=== PATIENT | female | born 1970 | race Caucasian/White ===

== ENCOUNTER 2018-01-04 12:04 | Inpatient (IN) | payer OTHER ==
[~2018-01-04] VITALS: Ht 170.2 cm; Wt 122.9 kg
--- NOTE | ~2018-01-04 | PROC ---
[address] [address] PROCEDURE REPORT Name: PARTH MANLEY Room: [address] IN ..#: [id number] Admission: 01/05/18 Attend Phys: Alexandra Hidalgo Discharge: Date of : 68 Report #: [id number] THIS REPORT FOR: //name// For GI report, please see Provation report in Perceptive 7 content. By: 1011Medical Records Staff [facility] /MOSES
[~2018-01-04 12:04] MED LIST: ASPIR 8181 MG PO; ASPIRIN EC325 M1 PO; AZITHROMYCIN 2250 MG PO; CARISOPRODOL 3350 MG PO; CHERACOL COUGH120 ML PO; FLEXERIL PO; HYDROCHLOROTHIA25 M1 PO; HYDROCHLOROTHIA25 M2 PO; IBUPROFEN 800800 M1 PO; IRON325 PO; LASIX 20 MG TAB20 MG PO; LEVAQUIN 500 M500 MG PO; METAXALONE800 MG; METFORMIN HCL500 MG PO; METHOCARBAMOL750 MG PO; MUCINEX600 MG PO; NIFEDIPINE ER30 M1; NOHOMEMEDICATIONS; NORCO 5-325 TA1 EAC1 PO; NORCO 5-325 TA1 EACH; NORCO 5-325 TA1 EACH PO; NORFLEX100 MG PO; OMEPRAZOLE20 M2 PO; OSELB75; OXYCODONE HCL20 M1; PAROXETINE HCL30 MG PO; PENICILLIN V P500 MG PO; PERCOCET 10-321 EACH PO; PERCOCET 7.5-51 EACH PO; PHENERGAN 25 MG25 MG PO; PREDNISONE 20 M20 MG PO; REQUIP5 MG PO; ROPINIROLE HCL2 M1 PO; TRAZODONE 150150 M1 PO; TYLENOL325 MG PO; ULTRACET TABLE1 EACH PO; ULTRAM 50MG TAB50 MG PO; ZOCOR 10 MG TAB10 M1 PO; [UNRECOGNIZED DRUG - OTHER] IV
[2018-01-04 12:22] VITALS: BP 94/38
[2018-01-04] MEDS ORDERED: NOHOMEMEDICATIONS (12:26)
[2018-01-04 13:14] LABS: ABSOLUTE BASOPHILS 0.1 thou/uL (0.0-0.2); ABSOLUTE EOSINOPHILS 0.1 thou/uL (0.0-0.7); ABSOLUTE LYMPHOCYTES 1.2 thou/uL (0.8-5.3); ABSOLUTE MONOCYTES 0.5 thou/uL (0.0-1.2); ABSOLUTE NEUTROPHILS 4.6 thou/uL (1.6-8.1); BASOPHILS 0.9 %; EOSINOPHILS 1.1 %; HEMATOCRIT 22.9 % (37.0-47.0); LYMPHOCYTES 18.9 %; MCH 17.3 pg (26.0-34.0); MCV 59.7 fL (80.0-100.0); MONOCYTES 8.1 %; MPV 8.6 fl. (7.2-11.1); NUCLEATED RBCS 0 /100WBC; PLATELET COUNT* 312 thou/uL (150-400); RBC 3.83 mil/uL (4.20-5.00); RDW-CV 19.6 % (10.5-14.5); WBC 6.5 thou/uL (4.0-11.0)
[2018-01-04 13:15] LABS: HEMOGLOBIN 6.6 gm/dL (12.0-15.0)
[2018-01-04 13:18] LABS: CALCIUM 8.3 mg/dL (8.5-10.1); CREATININE 0.5 mg/dL (0.6-1.3); POTASSIUM 4.3 mmol/L (3.5-5.1)
[2018-01-04 13:22] LABS: TOTAL BILIRUBIN 0.3 mg/dL (<0.1-1.0); TOTAL PROTEIN 6.9 g/dL (6.4-8.2)
[2018-01-04 13:32] LABS: ANISOCYTOSIS 1+; HYPOCHROMASIA 2+; MICROCYTES 3+; OVALOCYTES 2+
--- NOTE | 2018-01-04 15:17 | NUR ---
PT BLOOD STARTED AT 1315. CONSENT SIGNED BY PT AND RN. BLOOD VERIFIED BY 2 RN'S.
--- NOTE | 2018-01-04 15:20 | EKG ---
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1970 Requested By: Razia Mendiola Order Number: [id number] MD: Gaurav Yin Measurements Intervals [place] Rate: 58 P: -63 FL: 93 QRS: 47 QRSD: 95 T: 16 QT: 368 QTc: 362 Interpretive Statements Sinus or ectopic atrial rhythm Multiple ventricular premature complexes Short FL interval Nonspecific T abnormalities, anterior leads Compared to ECG 01/05/2016 07:45:05 Ectopic atrial rhythm now present Ventricular premature complex(es) now present Short FL interval now present T-wave abnormality now present Electronically Signed On 01-04-2018 15:20:01 CDT by Gaurav Yin [email or web address] <ELECTRONICALLY SIGNED> By: Gaurav Yin MD, FAC 01/04/18 1520 1220 1220 Gaurav Yin MD, FAC /EPI
[2018-01-04 16:58] VITALS: BP 119/52
[2018-01-04 17:27] VITALS: BP 121/46
--- NOTE | 2018-01-04 18:02 | NUR ---
PATIENT CAME TO THE FLOOR FROM THE ER VIA CART IN STABLE CONDITION. BLOOD INFUSING ON ARRIVAL. PATIENT HAS NO COMPLAINTS OF PAIN AT THIS TIME. ASSESSMENT DONE AND ROOM ORIENTATION DONE. QUESTIONS ANSWERED FOR PATIENT AND FAMILY. CALL LIGHT IS IN REACH, WILL CONTINUE TO MONITOR.
[2018-01-04 18:43] LABS: URINE BILIRUBIN NEGATIVE (Negative); URINE BLOOD NEGATIVE (Negative); URINE CLARITY CLEAR; URINE COLOR YELLOW; URINE GLUCOSE-RANDOM NEGATIVE (Negative); URINE KETONES NEGATIVE (Negative); URINE LEUKOCYTES-REFLEX NEGATIVE (Negative); URINE NITRITE-REFLEX NEGATIVE (Negative); URINE PROTEIN NEGATIVE (Negative); URINE UROBILINOGEN 0.2 E.U./dl (0.2-1.0)
[2018-01-04 21:10] VITALS: BP 103/57; BP 111/68; BP 115/37; BP 120/56; BP 120/68; BP 123/58
[2018-01-04 23:30] VITALS: BP 120/68
[2018-01-05 04:39] LABS: HEMATOCRIT 25.4 % (37.0-47.0); HEMOGLOBIN 7.6 gm/dL (12.0-15.0)
--- NOTE | 2018-01-05 06:46 | NUR ---
ASSUMED CARE OF PATIENT ABOUT 0300. AGREE WITH SHIFT ASSESSMENT. PATIENT RECEIVED 2ND UNIT OF BLOOD WITH NO APPARENT ADVERSE REACTIONS. PATIENT IS FEELING LESS WEAK AND IS ABLE TO WALK TO THE BATHROOM BY HERSELF. IV IS SALINE LOCKED. WILL CONTINUE TO MONITOR.
[2018-01-05 08:00] VITALS: BP 114/61
[2018-01-05 11:15] LABS: % SATURATION 5 % (20-39); IRON 18 ug/dL (50-175)
[2018-01-05 11:22] VITALS: BP 114/61; BP 120/74
--- NOTE | 2018-01-05 15:22 | NUR ---
CM ATTEMPTED TO SEE PT. SHE WAS OFF THE FLOOR FOR A PROCEDURE. WILL SEE IN AM.
--- NOTE | 2018-01-05 17:21 | NUR ---
PATIENT DOWN FOR EGD THIS AFTERNOON. PROTONIX ORDERED BID AND MAY RESUME DIET. PATIENT STATES SHE STILL FEELS FATIGUED. IV REMAINS SL. UP WITH ASSISTANCE.
[2018-01-05 21:00] VITALS: BP 136/73
[2018-01-06 07:55] VITALS: BP 123/65
[2018-01-06] MEDS ORDERED: PROTONIX40 M1 PO (10:44)
[2018-01-06 11:27] VITALS: BP 123/65
[2018-01-06] MEDS ORDERED: PRENATAL PLUS1 EAC5 PO (11:34)
--- NOTE | 2018-01-06 13:05 | NUR ---
PATIENT DISCHARGED TO HOME. DISCHARGE PAPERS REVIEWED AND SIGNED. PRESCRIPTION AND INFORMATION SHEETS GIVEN. IV REMOVED. PATIENT SCHEDULED FOR HYSTEROSCOPY IN AM OUTPATIENT. PATIENT DENIES ANY FURTHER NEEDS AT THIS TIME. PATIENT TAKEN BY WHEELCHAIR TO EXIT. LEFT WITH SPOUSE.
[2018-01-07] MEDS ORDERED: HYDROCODONE-AP1 EAC6 PO (12:02)
--- NOTE | 2018-01-09 08:55 | CON ---
[address] [address] CONSULTATION Name: PARTH MANLEY Room: [address] IN .#: [id number] Admission: 01/05/18 Attend Phys: Alexandra Hidalgo Discharge: 01/06/18 Date of : 68 Report #: [id number] THIS REPORT FOR: //name// CC: [facility] physician/PCP Tyrell Goins DICTATED BY: Susie Escobedo [facility] DATE OF SERVICE: 01/05/2018 Please note at the time of this dictation, the patient was seen and physically examined by myself. REASON FOR CONSULTATION: Acute anemia. HISTORY OF PRESENT ILLNESS: This is a 47-year-old female who presented to the Emergency Room with complaints of dizziness with an abrupt onset on the day that morning of admission. She states she has been felt very dizzy and lightheaded like she was going to pass out. She has noticed, though, prior the week preceding that she has had a great deal of fatigue, which has worsened. She states she has never been known to have a low hemoglobin and states that she had been told that she was low on iron in the past. She has been having ongoing nausea, which she states has been chronic for the last several months with also worsening of her GERD, which is occurring daily now and is not occurring at night. Her weight has been stable at this time and not taking anything for her acid reflux. Prior to her gastric sleeve done in 2015, she states she had severe acid reflux, particularly at night, but that is no longer the case and she has lost 200 pounds since that time. The patient did undergo an EGD and colonoscopy back in 2015 and was noted to have gastritis and colon showed some small internal hemorrhoids, otherwise was negative and we have not seen her since that time. Heavy menses lasting a week, may go through 4-5 large pads daily and her menses is about every 2 weeks and has been like that for the last several months. ALLERGIES: No known drug allergies. MEDICATIONS FROM HOME: The patient states she will take 2-3 ibuprofen, maybe a couple times a week for just some general arthralgias that she will have. PAST MEDICAL HISTORY: Questionable small heart attack in 1998 in [place]. She has had sleep apnea in the past. 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 [address] CONSULTATION Name: VINEETPARTH Ric Room: [address]#: [id number] Admission: 01/05/18 Attend Phys: Alexandra Hidalgo Discharge: 01/06/18 Date of : 68 Report #: [id number] FAMILY HISTORY: Negative for any GI or female cancers. SOCIAL HISTORY: Denies any alcohol, tobacco or illegal drug use at this time. REVIEW OF SYSTEMS: Twelve-point review of systems is essentially negative except what is mentioned in the HPI. PHYSICAL EXAMINATION: VITAL SIGNS: Temperature 37.2, pulse 73, respirations 18, blood pressure 120/68. HEART: Regular rate and rhythm. LUNGS: Clear. ABDOMEN: Soft, positive bowel sounds in all 4 quadrants with no masses or tenderness noted. LABORATORY DATA: Hemoglobin on admission was 6.5. Please note that back in 2016, hemoglobin was noted to be 11.5. She received 2 units of blood and she is now 7.6, hematocrit 25.4, white count is 6.5, platelets 312. Sodium 137, potassium 4.3, chloride 104, CO2 of 28, BUN is 10, creatinine 0.5. Her fibrinogen was 376. GFR is 132 and glucose is 91. Abdominal x-ray showed some retained stool. ASSESSMENT: 1. Nausea. 2. Gastroesophageal reflux disease, worsening. 3. Acute anemia. 4. Menorrhagia. PLAN: 1. EGD today with Dr. Whitehead. 2. Labs, ferritin, iron studies and B12. 3. DIRECTOR OF REVENUE to see. 4. Further recommendations to be made after the procedure has been performed. Thank you for allowing us to participate in this patient's care. Please do not hesitate to call with any questions in regard to this consult. <ELECTRONICALLY SIGNED> By: Mainor Whitehead MD 01/09/18 0855 1041 06Mainor Whitehead MD /nt
--- NOTE | 2018-01-09 08:55 | CON ---
[address] [address] CONSULTATION Name: PARTH MANLEY Room: [address] IN M.R.#: [id number] Admission: 01/05/18 Attend Phys: Alexandra Hidalgo Discharge: 01/06/18 Date of : 68 Report #: [id number] THIS REPORT FOR: //name// CC: [facility] physician/PCP Ismael Goins DATE OF SERVICE: 01/05/2018 ADDENDUM CONSULT NUMBER: [id number] I have personally seen and examined the patient and reviewed labs and imaging. The patient who presented with severe anemia and history of menorrhagia who also has had history of gastric sleeve surgery in the past, which resulted in losing 240 pounds. Her last upper and lower endoscopy was back in [address] Stuart, my partner. She also occasionally may have nausea and vomiting, but she had contributed it to eating the wrong stuff. We will go ahead and perform an upper endoscopy to further evaluate her nausea, vomiting and acute anemia. We will make further recommendation once the endoscopic evaluation is complete. <ELECTRONICALLY SIGNED> By: Mainor Whitehead MD 01/09/18 0855 1510 [id number] Whitehead MD /nt
--- NOTE | 2018-04-06 14:10 | PATH ---
[address] [address] PATHOLOGY RPT PROCEDURE Name: SANA MANLEY Room: [address] IN .R.#: [id number] Admission: 01/05/18 Date of : 68 Discharge: 01/06/18 Report #: [id number] Path Case #: [id number] [facility] Accession Number: [id number] . 01 Material submitted: . ANTRAL EROSION BIOPSY . 01 Clinical history: . Hiatal hernia, grade B esophagitis . 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 (ABEL:db; 01/06/2018) LBQ/01/06/2018 . 02 Comment: Special stain: H. pylori immuno . 02 Electronically signed: . Milo Caraballo MD, Pathologist NPI- [id number] . 01 Gross description: . Received in formalin labeled "Patrick, Sana, antral erosion biopsy," is a single segment of purvis soft tissue measuring 0.4 cm in maximum dimension. The specimen is submitted entirely in cassette A1. (TSD; 01/05/2018) TOB/TOB . 02 CPT . 957337, [id number] Performed at: [address], [place], [place] [id number] MD Toño Bravo MD Phone: [phone] Performed at: 02 [facility] [address] [address], [place], [place] [id number] MD Milo Caraballo MD Phone: [phone]
== END 2018-01-06 13:05 | disposition home or self-care (01) | DRG 378 ==
LOC: M.ERS 12:04 → M.TBA-ER 15:07 → M.3W 15:07
PROVIDERS: Nurse Practitioner Adult Health; Personal Emergency Response Attendant; ADMIT Internal Medicine
PROC: 30233N1 Transfusion of Nonautologous Red Blood Cells into Peripheral Vein, Percutaneous Approach (ICD-10-PCS; principal; 2018-01-04)
PROC: 0DB68ZX Excision of Stomach, Via Natural or Artificial Opening Endoscopic, Diagnostic (ICD-10-PCS; 2018-01-05)
DX: K92.2 Gastrointestinal hemorrhage, unspecified (principal); Z68.41 Body mass index [BMI] 40.0-44.9, adult; E30.1 Precocious puberty; D50.9 Iron deficiency anemia, unspecified; K21.0 Gastro-esophageal reflux disease with esophagitis; E66.9 Obesity, unspecified; K31.9 Disease of stomach and duodenum, unspecified; G89.29 Other chronic pain; M54.2 Cervicalgia; I95.9 Hypotension, unspecified; N92.0 Excessive and frequent menstruation with regular cycle; K44.9 Diaphragmatic hernia without obstruction or gangrene; R12 Heartburn; Z79.899 Other long term (current) drug therapy; Z98.84 Bariatric surgery status

== ENCOUNTER → 2018-01-07 | Day surgery (SDC) | payer OTHER ==
[~2018-01-07] MED LIST changes: +HYDROCODONE-AP1 EAC6 PO; +PRENATAL PLUS1 EAC5 PO; +PROTONIX40 M1 PO
--- NOTE | ~2018-01-07 | OP ---
[address] [address] OPERATIVE REPORT Name: PARTH MANLEY Room: [facility]#: [id number] Admission: 01/07/18 Attend Phys: Zac Cameron MD Discharge: Date of : 68 Report #: [id number] THIS REPORT FOR: //name// Please see the post operative note for details of the procedure. By: 1136Medical Records Staff [facility] /MOSES
--- NOTE | 2018-01-20 08:27 | H ---
[place] [address] HISTORY AND PHYSICAL Name: PARTH MANLEY Room: [facility]#: [id number] Admission: 01/07/18 Attend Phys: Zac Cameron MD Discharge: Date of : 68 Report #: [id number] THIS REPORT FOR: //name// CC: [facility] physician/PCP Zac Cameron DATE OF SERVICE: 01/07/2018 HISTORY OF PRESENT ILLNESS: The patient is a 47-year-old 2, para 2 white female who originally presented to the Emergency Room on 01/04/2018 with symptoms of dizziness and weakness. She was found to be profoundly anemic and was admitted to the hospital for therapy. During that hospitalization, she underwent an EGD that showed some gastric and esophageal irritation. A pelvic ultrasound was ordered and an essentially normal appearing upper uterus was noted. There was difficulty visualizing the lower uterine segment or adnexa. The patient has history of having had a gastric sleeve surgery in the past. She denies having had low hemoglobin in the past. She did note some changes in her menses and reported having very heavy menstrual cycles in the past, although in the last 2 years since her gastric sleeve she has not had heavy flow. She has had some bleeding in between her periods, however, and she is being admitted for hysteroscopy and D and C. PAST MEDICAL AND SURGICAL HISTORY: Show that she had "mild heart attack" in 1998 in [place], had a tendon release on her left heel at [facility] in 2005. She has sleep apnea. She has acid reflux. She had a tubal ligation in the past and nasal surgery x 2. She has a chronic neck pain secondary to a bulging disk and had a tumor removed from her ankle in 1990. CURRENT MEDICATIONS: At home, were hydrocodone/acetaminophen 5/325 p.r.n. pain and the patient is on iron supplementation. ALLERGIES: She denies allergies to food or medications. SOCIAL HISTORY: She is not a smoker, does not consume alcohol and does not use drugs. PHYSICAL EXAMINATION: GENERAL: She is a well-nourished, well-developed white female, in no acute distress. HEENT: Normal. CHEST: Clear to auscultation and percussion. HEART: Normal sinus rhythm without murmurs. ABDOMEN: Soft, obese. Liver, kidneys and spleen are not palpable. PELVIC: BUS examination is normal. Vagina is without obvious lesion. The cervix is difficult to visualize (the patient states she has always had a high cervix). No palpable abnormalities are noted. No [place] [address] HISTORY AND PHYSICAL Name: VINEETPARTH Room: [facility]#: [id number] Admission: 01/07/18 Attend Phys: Zac Cameron MD Discharge: Date of : 68 Report #: [id number] EXTREMITIES: Shows no varicosities or edema. IMPRESSION: 1. Anemia with hypotension, hypotension corrected. 2. History of abnormal menses with menorrhagia in the past and current metrorrhagia. 3. History of abnormal Pap. PLAN: I discussed performing a hysteroscopy with D and C while as an inpatient. The patient has been dismissed from [facility] and will be coming in as an outpatient to have this procedure performed. Risks of the operation have been discussed in detail with the patient. She has received a printout from [employer] about possible causes of abnormal bleeding and a hysteroscopy fact sheet, FAQ sheet from [facility]. She has had the opportunity to ask questions and they have been answered. <ELECTRONICALLY SIGNED> By: Zac Cameron MD 01/20/18 0827 1600 [id number] Cameron MD /nt
--- NOTE | 2018-04-06 13:08 | PATH ---
[address] [address] PATHOLOGY RPT PROCEDURE Name: SANA MANLEY Room: [facility]#: [id number] Admission: 01/07/18 Date of : 68 Discharge: Report #: [id number] Path Case #: [id number] [facility] Accession Number: [id number] . 01 Material submitted: . PART A: ENDOCERVICAL CURETTINGS PART B: ENDOMETRIAL CURETTINGS . 01 Clinical history: . Anemia with hypotension . 02 Diagnosis: A. Endocervical curettings: - Abundant benign squamous and endocervical tissues with moderate acute and chronic inflammation and associated atypical squamous metaplasia, negative for high grade dysplasia. See comment. . B. Endometrial curettings: - Focally disordered proliferative pattern endometrium, negative for hyperplasia and atypia. - Benign endocervical tissue with moderate chronic inflammation, negative for dysplasia. (ABEL:vini; 01/10/2018) QMS/01/10/2018 . 02 Comment: The accompanying cervical specimen ([id number]) is negative for an intraepithelial lesion and malignancy with negative HPV Aptima. . . . 02 Electronically signed: . Milo Caraballo MD, Pathologist NPI- [id number] . 01 Gross description: . A. The specimen is received in formalin, labeled "Sana Manley and endocervical curettings", is a 1.4 x 1.0 x 0.6 cm aggregate of purvis hemorrhagic mucoid material, entirely submitted in A1. . B. The specimen is received in formalin, labeled "Patrick, Sana and endometrial curettings", are multiple purvis hemorrhagic soft tissues measuring 3.0 x 2.2 x 0.7 cm in aggregate, entirely submitted in B1-B2. (SWS; 01/07/2018) SHS/ . 02 Pathologist provided ICD-10: N72, N85.[address] [place] [address] PATHOLOGY RPT PROCEDURE Name: SANA MANLEY Room: [facility]#: [id number] Admission: 01/07/18 Date of : 68 Discharge: Report #: [id number] Path Case #: [id number] . 02 [facility] . [id number], [id number] Performed at: [address], [place], [place] [id number] MD Toño Bravo MD Phone: [phone] Performed at: 02 [facility] [address], [place], [place] [id number] MD Milo Caraballo MD Phone: [phone]
--- NOTE | 2018-04-06 15:08 | PATH ---
[address] [address] PATHOLOGY RPT PROCEDURE Name: SANA MANLEY [id number] Admission: 01/07/18 Date of : 68 Discharge: Report #: [id number] Path Case #: [id number] [facility] Accession Number: [id number] . 01 Material submitted: . CERVIX AND ENDOCERVIX BRUSH/SPATULA . 02 Diagnosis: Cervix and endocervix, brush/spatula collection: - Scant strips of benign squamous epithelium and abundant benign endocervical epithelium with scattered endocervical atypia and background of heavy acute inflammation, negative for high grade dysplasia. See comment. LBQ/01/14/2018 . 02 Comment: The endocervical atypia is within the spectrum of inflammatory atypia although low grade endocervical dysplasia cannot be excluded. Recent gynecologic specimens show the following results: ([id number]) negative for intraepithelial lesion and malignancy; HPV Aptima negative (specimen adequacy - satisfactory for evaluation but no endocervical component identified). . ([id number]) endocervical curettings with abundant benign squamous and endocervical tissues showing moderate acute and chronic inflammation, associated atypical squamous metaplasia negative for high grade dysplasia and focally disordered proliferative pattern endometrium negative for hyperplasia and atypia. (ABEL:db; 01/14/2018) . 02 Electronically signed: . Milo Caraballo MD, Pathologist NPI- [id number] . 01 Gross description: . Received in formalin labeled "Sana Manley, cervix and endocervical Pap smear, histology" and consists of a 0.4 x 0.3 x 0.2 cm aggregate of scant purvis tissue and mucoid material which is entirely submitted as A1. (EDNA; 01/12/2018) JBR/JBR . 02 Pathologist provided ICD-10: N72 . 02 CPT . [id number] Performed at: 01 [place] [address] PATHOLOGY RPT PROCEDURE Name: SANA MANLEY Room: [facility].#: [id number] Admission: 01/07/18 Date of : 68 Discharge: Report #: [id number] Path Case #: [id number] [address] [facility] [address], [place], [place] [id number] MD Toño Bravo MD Phone: [phone] Performed at: 02 [facility] [address], [place], [place] [id number] MD Milo Caraballo MD Phone: [phone]
== END | disposition home or self-care (01) ==
LOC: M.SUR 07:49
DX: N72 Inflammatory disease of cervix uteri (principal); N92.1 Excessive and frequent menstruation with irregular cycle; N93.8 Other specified abnormal uterine and vaginal bleeding; D64.9 Anemia, unspecified; I25.2 Old myocardial infarction; G47.33 Obstructive sleep apnea (adult) (pediatric); K21.9 Gastro-esophageal reflux disease without esophagitis; Z79.891 Long term (current) use of opiate analgesic; Z98.890 Other specified postprocedural states; Z98.51 Tubal ligation status; Z87.42 Personal history of other diseases of the female genital tract; Z88.8 Allergy status to other drugs, medicaments and biological substances; Z79.899 Other long term (current) drug therapy

== ENCOUNTER 2020-12-12 13:26 | Inpatient (IN) | payer OTHER ==
[~2020-12-12] VITALS: Ht 170.2 cm; Wt 123.9 kg
[2020-12-12 13:32] VITALS: BP 136/47
[2020-12-12 13:50] LABS: ABSOLUTE EOSINOPHILS 0.1 thou/uL (0.0-0.7); ABSOLUTE LYMPHOCYTES 1.5 thou/uL (0.8-5.3); ABSOLUTE MONOCYTES 0.5 thou/uL (0.0-1.2); ABSOLUTE NEUTROPHILS 3.4 thou/uL (1.6-8.1); BASOPHILS 0.9 %; EOSINOPHILS 1.7 %; HEMOGLOBIN 12.7 gm/dL (12.0-15.0); LYMPHOCYTES 26.7 %; MCH 28.9 pg (26.0-34.0); MCHC 32.5 g/dL (28.0-37.0); MONOCYTES 9.2 %; MPV 8.7 fl. (7.2-11.1); NUCLEATED RBCS 0 /100WBC; PLATELET COUNT* 220 thou/uL (150-400); POLYS 61.5 %; RBC 4.38 mil/uL (4.20-5.00); RDW-CV 16.6 % (10.5-14.5); WBC 5.5 thou/uL (4.0-11.0)
[2020-12-12 14:01] LABS: CALCIUM 8.4 mg/dL (8.5-10.1); CREATININE 0.7 mg/dL (0.6-1.3); POTASSIUM 3.7 mmol/L (3.5-5.1)
[2020-12-12 14:12] LABS: ALBUMIN 3.5 g/dL (3.4-5.0); MAGNESIUM 2.1 mg/dL (1.8-2.4); TOTAL BILIRUBIN 0.2 mg/dL (<0.1-1.0); TOTAL PROTEIN 7.4 g/dL (6.4-8.2)
--- NOTE | 2020-12-12 16:02 | EKG ---
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1970 Requested By: Pool Freitas Order Number: [id number] MD: Bryce Grijalva Measurements Intervals [place] Rate: 46 P: 33 IN: 155 QRS: 72 QRSD: 127 T: 213 QT: 412 QTc: 361 Interpretive Statements Sinus bradycardia Borderline repolarization abnormality Compared to ECG 01/04/2018 12:20:00 Ectopic atrial rhythm no longer present Ventricular premature complex(es) no longer present Short IN interval no longer present T-wave abnormality no longer present Electronically Signed On 12-12-2020 16:02:21 CDT by Bryce Grijalva [email or web address] <ELECTRONICALLY SIGNED> By: Bryce Grijalva MD, FAC 12/12/20 1602 1330 1330 Bryce Grijalva MD, [facility] /EPI
[2020-12-12 17:05] VITALS: BP 137/56
[2020-12-12] MEDS ORDERED: FAMOTIDINE 40 M40 M1 PO (17:26)
[2020-12-12] MEDS ORDERED: PROTONIX40 M2 PO (17:27)
[2020-12-12 17:33] VITALS: BP 139/54
[2020-12-12 20:00] VITALS: BP 139/44; BP 141/87
[2020-12-12 23:44] VITALS: BP 90/31
[2020-12-13 03:27] VITALS: BP 92/34
[2020-12-13 03:58] LABS: HEMATOCRIT 37.4 % (37.0-47.0); MCH 28.7 pg (26.0-34.0); MCV 89.6 fL (80.0-100.0); MPV 8.9 fl. (7.2-11.1); RBC 4.17 mil/uL (4.20-5.00); RDW-CV 16.3 % (10.5-14.5); WBC 4.9 thou/uL (4.0-11.0)
[2020-12-13 04:11] LABS: CALCIUM 8.5 mg/dL (8.5-10.1); CREATININE 0.5 mg/dL (0.6-1.3); POTASSIUM 3.6 mmol/L (3.5-5.1)
[2020-12-13 08:00] VITALS: BP 132/68
--- NOTE | 2020-12-13 10:53 | EKG ---
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 : 1970 Requested By: Chari Dumont Order Number: [id number] Reading MD: Gaurav Yin Measurements Intervals [place] Rate: 46 P: 11 FL: 163 QRS: 75 QRSD: 101 T: 4 QT: 425 QTc: 372 Interpretive Statements Sinus bradycardia Low voltage, precordial leads Nonspecific T abnormalities, anterior leads Compared to ECG 12/12/2020 13:30:56 Low QRS voltage now present Electronically Signed On 12-13-2020 10:53:38 CDT by Gaurav Yin [email or web address] <ELECTRONICALLY SIGNED> By: Gaurav Yin MD, [facility] 12/13/20 1053 30 30 Gaurav Yin MD, [facility] /EPI
--- NOTE | 2020-12-13 11:52 | 2DMMODE ---
[place] [address] 2 D/M-MODE ECHOCARDIOGRAM Name: PARTH MANLEY Room: [address] IN [facility]#: [id number] Admission: 12/12/20 Attend Phys: Chari Dumont Discharge: Date of : 68 Date of Service: 12/13/20 1152 Report #: [id number] THIS REPORT FOR: cc: Pratima Carrizales Michelle RNP Blick, David R. MD [facility] ~ APPROVED REPORT Study performed: 12/13/2020 10:16:18 EXAM: Comprehensive 2D, Doppler, and color-flow Echocardiogram Patient Location: In-Patient Room #: [facility] Status: routine BSA: 2.32 HR: 43 bpm BP: 92/34 mmHg Rhythm: NSR Other Information Study Quality: Good Indications Bradycardia 2D Dimensions IVSd: 10.64 (7-11mm) LVOT Diam: 21.90 (18-24mm) LVDd: 57.88 mm PWd: 11.67 (7-11mm) Ascending Ao: 32.83 (22-36mm) LVDs: 34.48 (25-40mm) Aortic Root: 32.37 mm Volumes Left Atrial Volume (Systole) LA ESV Index: 28.50 mL/m2 Aortic Valve AoV Peak Rome.: 1.61 m/s AO Peak Gr.: 10.33 mmHg LVOT Max P.54 mmHg AO Mean Gr.: 5.23 mmHg LVOT Mean P.97 mmHg LVOT Max V: 1.07 m/s AO V2 VTI: 36.12 cm LVOT Mean V: 0.63 m/s SAHARA (VTI): 2.53 cm2 LVOT V1 VTI: 24.31 [place] [address] 2 D/M-MODE ECHOCARDIOGRAM Name: PARTH MANLEY Room: [address] IN [facility]#: [id number] Admission: 12/12/20 Attend Phys: Chari Dumont Discharge: Date of : 68 Date of Service: 12/13/20 1152 Report #: [id number] Mitral Valve E/A Ratio: 1.93 MV Decel. Time: 236.42 ms MV E Max Rome.: 0.87 m/s MV PHT: 68.56 ms MVA (PHT): 3.21 cm2 TDI E/Lateral E': 4.83 E/Medial E': 5.80 Medial E' Rome.: 0.15 m/s Lateral E' Rome.: 0.18 m/s Pulmonary Valve PV Peak Rome.: 0.86 m/s PV Peak Gr.: 2.93 mmHg Tricuspid Valve RAP Estimate: 5.00 mmHg TR Peak Gr.: 18.65 mmHg RVSP: 23.00 mmHg PA Pressure: 23.00 mmHg Left Ventricle The left ventricle is normal size. There is normal LV segmental wall motion. There is normal left ventricular wall thickness. Left ventricular systolic function is normal. The left ventricular ejection fraction is within the normal range. LVEF is 55-60%. The left ventricular diastolic function is normal. Right Ventricle The right ventricle is normal size. The right ventricular systolic function is normal. Atria The left atrium size is normal. The right atrium size is normal. Aortic Valve The aortic valve is normal in structure. Mild aortic regurgitation. There is no aortic valvular stenosis. Mitral Valve The mitral valve is normal in structure. Mild mitral regurgitation. No evidence of mitral valve stenosis. Tricuspid Valve The tricuspid valve is normal in structure. Mild tricuspid regurgitation. [place] [address] 2 D/M-MODE ECHOCARDIOGRAM Name: VINEETPARTH Room: [address] IN [facility]#: [id number] Admission: 12/12/20 Attend Phys: Chari Dumont Discharge: Date of : 68 Date of Service: 12/13/20 1152 Report #: [id number] Pulmonic Valve The pulmonary valve is normal in structure. Mild pulmonic regurgitation. Great Vessels The aortic root is normal in size. IVC is normal in size and collapses >50% with inspiration. Pericardium There is no pericardial effusion. <Conclusion> LVEF is 55-60%. Mild aortic regurgitation. Mild mitral regurgitation. <ELECTRONICALLY SIGNED> By: Gaurav Yin MD, [facility] 12/13/20 1152 1152 1152 Gaurav Yin MD, FACC /INF
[2020-12-13 12:00] VITALS: BP 113/59
[2020-12-13 20:00] VITALS: BP 141/87
[2020-12-14 00:13] VITALS: BP 117/77
[2020-12-14 04:14] VITALS: BP 132/87
[2020-12-14 04:38] LABS: HEMATOCRIT 40.4 % (37.0-47.0); HEMOGLOBIN 13.1 gm/dL (12.0-15.0); MCH 28.5 pg (26.0-34.0); MCHC 32.4 g/dL (28.0-37.0); MPV 9.1 fl. (7.2-11.1); RBC 4.59 mil/uL (4.20-5.00); RDW-CV 16.2 % (10.5-14.5); WBC 7.4 thou/uL (4.0-11.0)
[2020-12-14 04:49] LABS: CALCIUM 8.6 mg/dL (8.5-10.1); CREATININE 0.7 mg/dL (0.6-1.3); POTASSIUM 3.5 mmol/L (3.5-5.1)
[2020-12-14 08:30] VITALS: BP 100/68
[2020-12-14 11:48] VITALS: BP 100/68
[2020-12-14 12:00] VITALS: BP 142/85
[2020-12-14] MEDS ORDERED: NORCO5 PO (15:17)
--- NOTE | 2020-12-16 15:17 | EKG ---
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 : 1970 Requested By: Gaurav Yin Order Number: [id number] Levy MD: Gideon Bui Measurements Intervals [place] Rate: 77 P: SC: 177 QRS: 42 QRSD: 95 T: -16 QT: 381 QTc: 432 Interpretive Statements Atrial-paced complexes Low voltage, precordial leads Nonspecific T abnormalities, anterior leads Compared to ECG 12/12/2020 22:31:00 Sinus bradycardia no longer present T-wave abnormality still present Electronically Signed On 12-16-2020 15:17:00 CDT by Gideon Bui [email or web address] <ELECTRONICALLY SIGNED> By: Gideon Bui MD, [facility] 12/16/20 1517 2 2 Gideon Bui MD, [facility] /EPI
--- NOTE | 2020-12-17 16:28 | CARD ---
[address] [address] CARDIAC CATH REPORT Name: PARTH MANLEY Room: [address]#: [id number] Admission: 12/12/20 Attend Phys: Alexandra Mcnair Discharge: 12/14/20 Date of : [birth year] Report #: [id number] THIS REPORT FOR: cc: Pratima Carriazles Michelle RNP Blick, David R. MD [facility] ~ APPROVED REPORT Study performed: 12/13/2020 15:39:42 Patient Status: In-Patient Room #: Event Personnel: Gomez Bryant GLUE MAKER BONE Monitor, Vinh Osullivan RTR Scrub, Wojciech Amaro RN RN, Gaurav Yin General Manager, Nilesh Pathak GLUE MAKER BONE Monitor, Mesha Lamb Monitor Exam: Insertion of Dual Chamber Permanent Pacemaker and cardioversion Indications: Sick Sinus Syndrome/Tachy Jerrell Syndrome The patient is a 50 year-old female with a history of Dizziness and vertigo. Conscious Sedation Start time: 1622 End Time: 1827 Fentanyl 225 mcg Versed 22 mg Implanted Devices: permanent dual chamber MRI compatible Biotronic pacemaker generator and leads Procedure The patient underwent informed consent. We discussed the details of the procedure including the risks, which include, but not limited to bleeding, infection, vascular damage, cardiac perforation, and pneumothorax. She understood these risks and was willing to proceed. As such, she was brought to the EP/Cardiac Catheterization laboratory in a fasting and sedated state and prepped and draped in a sterile fashion, received IV antibiotics prior to initiation of the procedure and a venogram was performed showing patency of the left axillary vein. The patient underwent conscious sedation, with no related complications. The patient was brought to the EP/Cardiac Catheterization laboratory and the left chest and shoulder were prepped and draped in a sterile manner. During this case, Fluoroscopy and low [place] [address] CARDIAC CATH REPORT Name: PARTH MANLEY Room: [address]#: [id number] Admission: 12/12/20 Attend Phys: Alexandra Mcnair Discharge: 12/14/20 Date of : 68 Report #: [id number] imaging. IV conscious sedation was used throughout procedure with appropriate monitoring and was performed in the presence of a registered nurse who was an independent trained observer other than the physician performing the procedure. The left subclavian region was infiltrated with 2% Lidocaine subcutaneous anesthesia. A transverse incision was made in the left upper chest cavity. The subcutaneous pocket was formed via blunt dissection. Percutaneous venous access was achieved and an introducer sheath was inserted into the left Subclavian vein. Sheaths were positions using the modified Seldinger technique Through the introducer sheaths the atrial and ventricular lead wires were positioned in the right atrial appendage and right ventricular apex respectively. Utilizing fluoroscopic guidance, the atrial and ventricular lead wires were advanced over the wires and positioned in the right atria and right ventricle respectively. Capturing and sensing thresholds were verified. On insertion of the leads, the patient deveoped recurrent rapid atrial fibrillation. The patient was given IV Digoxin, 0.5 mg IV, and IV amiodarone 150 mg over 10 minutes. The patient required 4 cardioversions during pacemaker insertion up to 360 J. Electrode Parameters P Wave: greater than 2 mv R Wave: greater than 5 mv Atrial Threshold: less than 1 v@.4ms Ventricular Threshold: less than 1.0v@0.4 ms Atrial Resistance: normal Ventricular Resistance: normal Dual Chamber The atrial and ventricular leads were then secured using 0 silk sutures. The subcutaneous pocket was irrigated with ancef antibiotic solution.The atrial and ventricular leads were attached to the appropriate receptacles on the pulse generator and set screws firmly tightened to insure adequate contact and stability. The lead and pulse generator were placed into the subcutaneous pocket. Sharp and sponge counts were confirmed to be correct. At this time the pocket was closed subcutaneously with a , 0 Vicryl2.0 Vicryl, 4.0 Vicryl and the skin was closed with a DERMABOND. The operative site was dressed in sterile fashion with skin affix and the patient was transferred to the floor in stable [place]. [place] [address] CARDIAC CATH REPORT Name: PARTH MANLEY Room: [address] IN M..#: [id number] Admission: 12/12/20 Attend Phys: Alexandra Mcnair Discharge: 12/14/20 Date of : [birth year] Report #: [id number] The patient tolerated the procedure well and there were no complications associated with the procedure. Findings Specimens Removed: N/A Estimated Blood Loss: less [id number] Conclusion 1. successful placement of a dual chamber pacemaker 2. successful cardioversion of atrial fibrillation to sinus rhythm <ELECTRONICALLY SIGNED> By: Gaurav Yin MD, [facility] 12/17/20 1628 27 [id number] Yin MD, FAC /INF
--- NOTE | 2020-12-17 16:29 | CON ---
[address] [address] CONSULTATION Name: PARTH MANLEY Room: [address] IN ..#: [id number] Admission: 12/12/20 Attend Phys: Alexandra Mcnair Discharge: 12/14/20 Date of : [birth year] Report #: [id number] THIS REPORT FOR: cc: Pratima Carrizales Michelle RNP Blick, David R. MD [facility] ~ DOC #: [id number] Gaurav Yin MD [facility] DATE OF CONSULTATION: 12/13/2020 CARDIOLOGY CONSULTATION HISTORY OF PRESENT ILLNESS: The patient is a 50-year-old white female who I was asked to see in the hospital today after she complained of chest pain. The patient has an extensive and complicated past medical history. She is 5 feet 8 inches and previously weighed over 450 pounds. She apparently had an abnormal nuclear stress test back in 2011 and actually had a heart catheterization at [facility] at that time, that showed no significant coronary artery disease. Prior to undergoing bariatric surgery, she underwent a nuclear stress test in 2016 at [place] that showed no significant ischemia. She subsequently had her gastric sleeve surgery in 2016 in [place]. The patient stays very active at work. She was doing well until the past week, she has been having intermittent heaviness in her chest. It comes and goes. It is not related to exertion or meals. Occasionally, goes into her left arm. This is not related to coughing. She has had no bleeding in her stool. She denies any trauma to her chest. Yesterday, she felt a heaviness in her chest. She took her heart rate and it was under 50. She drove herself to the emergency room and was admitted for further evaluation and treatment. She does note occasional skipped beat of her heart, but has had no syncope. She has complained of fatigue and shortness of breath. She had no significant edema or syncope. PAST MEDICAL HISTORY: Otherwise, she had cervical cancer, treated for ablation in the past. She has had left heel tendon release. She has had a tubal ligation. No surgery, right ankle reconstructive surgery. Her last menstrual period was 2 weeks ago. She previously had a history of hyperlipidemia, but is no longer taking a statin drug. She had a previous history of glucose intolerance, but no longer taking metformin. No history of hypertension. CURRENT MEDICATIONS: Include only Pepcid and Protonix for reflux. She is no longer on Paxil. She used to take Lasix for edema. She has a history of anemia and receives iron infusions. ALLERGIES: She [place] [address] CONSULTATION Name: PARTH MANLEY Room: [address] IN M.R.#: [id number] Admission: 12/12/20 Attend Phys: Alexandra Mcnair Discharge: 12/14/20 Date of : [birth year] Report #: [id number] FAMILY HISTORY: Her sister had a stent. Another sister had atrial fibrillation. SOCIAL HISTORY: She is . She and her live in [place]. She works at [employer]. Quit smoking years ago. No alcohol abuse. REVIEW OF SYSTEMS: GENERAL: She is still overweight being 5 feet 8 inches, 270 pounds. HEENT: She was anicteric. Conjunctivae pink. Mucous membranes moist. NECK: Veins difficult to assess due to obesity. No carotid bruits. CHEST: Clear to auscultation. HEART: Regular rate and rhythm. ABDOMEN: Obese. EXTREMITIES: No pitting edema. Dorsalis pedis pulse, 1+ bilaterally. SKIN: Cool and dry. NEUROLOGIC: Nonfocal. LABORATORY DATA: ECG shows sinus bradycardia with nonspecific ST segment changes. Her workup in the emergency room yesterday, she had a portable chest x-ray that showed normal heart size, clear lung mcmullen. CT scan of the head showed no acute abnormality. Her lab work; sodium 140, potassium 3.6, creatinine 0.5. Her liver function studies were normal. Troponins were all less than 0.06. TSH 1.3, T4 1.0. Her white blood cell count 4.9, hemoglobin 12. Her COVID antigen stat test was negative. IMPRESSION AND RECOMMENDATIONS: 1. Chest pain. Atypical for angina. No acute myocardial infarction. Previous heart catheterization in 2011 showed no coronary artery disease. Nuclear stress test in 2016 was nonischemic. Suspect her chest pain is noncardiac. 2. Sinus bradycardia. If symptomatic, she would require pacemaker. 3. Obesity. Previous gastric sleeve surgery. 4. History of hyperlipidemia. The patient is no longer on a statin drug. 5. Previous history of glucose intolerance. The patient no longer on metformin. 6. History of sleep apnea. The patient no longer uses CPAP. 7. Chronic anemia. The patient received IV infusions of iron. Gaurav Yin MD [facility] [address] [address] CONSULTATION Name: PARTH MANLEY Room: [address] IN [place].#: [id number] Admission: 12/12/20 Attend Phys: Alexandra Mcnair Discharge: 12/14/20 Date of : 68 Report #: [id number] <ELECTRONICALLY SIGNED> By: Gaurav Yin MD, [facility] 12/17/20 1629 [id number] [id number] Yin MD, [facility] /nt
== END 2020-12-14 12:50 | disposition home or self-care (01) | DRG 243 ==
LOC: M.ERS 13:26 → M.2W 14:27 → M.TBA-ER 14:27 → M.2W 17:14
PROVIDERS: Emergency Medicine Emergency Medical Services; ADMIT Internal Medicine; ATTEND Internal Medicine
PROC: 0JH606Z Insertion of Pacemaker, Dual Chamber into Chest Subcutaneous Tissue and Fascia, Open Approach (ICD-10-PCS; principal; 2020-12-13)
PROC: 02H63JZ Insertion of Pacemaker Lead into Right Atrium, Percutaneous Approach (ICD-10-PCS; principal; 2020-12-13)
PROC: 5A2204Z Restoration of Cardiac Rhythm, Single (ICD-10-PCS; principal; 2020-12-13)
PROC: B51N1ZZ Fluoroscopy of Left Upper Extremity Veins using Low Osmolar Contrast (ICD-10-PCS; principal; 2020-12-13)
PROC: 02HK3JZ Insertion of Pacemaker Lead into Right Ventricle, Percutaneous Approach (ICD-10-PCS; principal; 2020-12-13)
PROC: 4B02XSZ Measurement of Cardiac Pacemaker, External Approach (ICD-10-PCS; 2020-12-14)
DX: I49.5 Sick sinus syndrome (principal); Z68.41 Body mass index [BMI] 40.0-44.9, adult; E66.9 Obesity, unspecified; G89.29 Other chronic pain; K21.9 Gastro-esophageal reflux disease without esophagitis; E78.5 Hyperlipidemia, unspecified; D64.9 Anemia, unspecified; I20.8 Other forms of angina pectoris; R07.89 Other chest pain; Z20.822 Contact with and (suspected) exposure to COVID-19; Z85.41 Personal history of malignant neoplasm of cervix uteri; Z82.49 Family history of ischemic heart disease and other diseases of the circulatory system

== ENCOUNTER 2021-08-04 14:38 | Emergency (ER) | payer OTHER ==
[~2021-08-04] VITALS: Ht 170.2 cm; Wt 117.9 kg
[~2021-08-04 14:38] MED LIST changes: +FAMOTIDINE 40 M40 M1 PO; +NORCO5 PO; +PROTONIX40 M2 PO
[2021-08-04] MEDS ORDERED: MELOXICAM15 MG PO (15:23)
[2021-08-04 15:51] LABS: INFLUENZA A ANTIGEN Negative (Negative); INFLUENZA B ANTIGEN Negative (Negative)
[2021-08-04] MEDS ORDERED: AUGMENTIN 875-1 EACH PO (17:33)
[2021-08-04] MEDS ORDERED: ZPAK PO (17:33)
[2021-08-04 17:45] VITALS: BP 129/95
== END 2021-08-04 17:46 | disposition home or self-care (01) ==
LOC: M.ERS 14:38
PROVIDERS: Nurse Practitioner Family
DX: J18.9 Pneumonia, unspecified organism (principal); Z20.822 Contact with and (suspected) exposure to COVID-19; I25.2 Old myocardial infarction; K21.9 Gastro-esophageal reflux disease without esophagitis; E66.9 Obesity, unspecified; Z98.51 Tubal ligation status; Z98.890 Other specified postprocedural states; Z98.84 Bariatric surgery status; Z95.0 Presence of cardiac pacemaker; Z79.899 Other long term (current) drug therapy